=== PATIENT | male | born 1965 | race Caucasian/White ===

== ENCOUNTER 2023-06-01 07:54 | Day surgery (SDC) | payer MEDICARE ==
[~2023-06-01] VITALS: Ht 175.3 cm; Wt 71.0 kg
[~2023-06-01 07:54] MED LIST: ATOR40TA28 PO; B,C/1TAB PO; CHLORHEXIDINE GLUCONATE 2% TOWELETTE [2'S/6'S] TP ONE; CeFAZolin 2 GM/DEXTROSE 50 ML IV ONE; CeFAZolin SODIUM 1 GM VIAL ONE; ERGO500054 PO; ETHYL ALCOHOL 62% ANTISEPTIC NASAL SANITIZER 0.6 ML AMPUL NASAL ONE; FAT EMULSION 20% 100 ML IV ONE; HEPARIN SODIUM,PORCINE 5,000 UNITS/ML VIAL ONE; LIDOCAINE/PF 1% 30 ML VIAL ONE; LOSA-382 PO; NIFE-129 PO; SEVE800T38 PO; SODIUM CHLORIDE 0.9% 1,000 ML ONE; SODIUM CHLORIDE 0.9% 100 ML ONE
[2023-06-01 08:35] LABS: PROTHROMBIN TIME 10.3 SEC (9.4-11.6)
[2023-06-01 08:42] LABS: GLUCOMETER DEV NAME(LOC) SDS.; GLUCOSE,POINT OF CARE 88 MG/DL (70-110)
[2023-06-01] MEDS ORDERED: GELATIN SPONGE,ABSORBABLE 100 MM TP ONE (10:54)
[2023-06-01] MEDS ORDERED: THROMBIN, BOVINE 20000 UNITS/VIAL POWDER TP ONE (10:55)
[2023-06-01] MEDS ORDERED: CLON0.1T2 PO (11:40)
[2023-06-01] MEDS ORDERED: PANT40TA54 PO (11:40)
[2023-06-01] MEDS ORDERED: CARV25TA32 PO (11:40)
[2023-06-01] MEDS ORDERED: HYDR100T28 PO (11:40)
[2023-06-01] MEDS ORDERED: LOSA100T59 PO (11:40)
[2023-06-01] MEDS ORDERED: ACETAMINOPHEN 1000 MG/ISO-OSM 100 ML IV ONE (11:45)
[2023-06-01] MEDS ORDERED: CeFAZolin SODIUM 1 GM VIAL IVP ONE (12:00)
[2023-06-01] MEDS ORDERED: PROPOFOL 1% 20 ML VIAL IVP ONE (12:00)
[2023-06-01] MEDS ORDERED: LIDOCAINE/PF 2% 5 ML VIAL IM ONE (12:00)
[2023-06-01] MEDS ORDERED: MIDAZOLAM HCL 2 MG/2 ML VIAL IVP ONE (12:00)
[2023-06-01] MEDS ORDERED: ONDANSETRON HCL 4 MG/2 ML VIAL IVP ONE (12:00)
[2023-06-01] MEDS ORDERED: FentaNYL CITRATE PF 100 MCG/2 ML VIAL IVP ONE (12:00)
[2023-06-01] MEDS ORDERED: SODIUM CHLORIDE 0.9% 1,000 ML IV ONE (14:00)
== END 2023-06-01 13:15 | disposition home or self-care (01) ==
LOC: SURGERY 07:54
PROVIDERS: ATTEND Surgery
DX: I12.0 Hypertensive chronic kidney disease with stage 5 chronic kidney disease or end stage renal disease (principal); N18.6 End stage renal disease; D63.1 Anemia in chronic kidney disease; Z79.899 Other long term (current) drug therapy
CPT/HCPCS: 36821; 82962; 85610; 85730; 36415; 93005; J2704; J0690 ×2; J3010; J3490 ×2; J2250; J2405; J1644; J7030; J7050